=== PATIENT | female | born 1995 | race Caucasian/White ===

== ENCOUNTER 2018-01-10 21:45 | Observation (INO) | payer BC ==
[~2018-01-10] VITALS: Ht 172.7 cm; Wt 58.9 kg
--- NOTE | ~2018-01-10 | HP ---
PATIENT: SHARRON MALDONADO MEDICAL RECORD: [id number] ACCOUNT: [id number] LOCATION:[address] : 95 ADMISSION DATE: 01/10/18 HISTORY AND PHYSICAL EXAMINATION REASON FOR ADMISSION: Abdominal pain, vomiting. HISTORY OF PRESENT ILLNESS: The patient is a 22-year-old 0 female who underwent right oophorectomy and salpingectomy on 01/04/2018 at [facility] by Dr. 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 She was hospitalized for 3 days and went home with minimal nausea. She developed increasing nausea and vomiting with ensuing days and was seen in our office yesterday. She was mildly orthostatic. Potassium was 2.9. Abdominal series shows some increased small bowel gas but no hans ileus. She went home to try liquid Zofran and potassium replacement. Her father reported that increasing nausea throughout the day and vomiting, could not hold anything down. She was directly admitted for this reason. She denies fever. Has had flatus. PAST MEDICAL HISTORY: Otherwise negative. PAST SURGICAL HISTORY: [place] tooth extraction, had hymenectomy, and recent right salpingo-oophorectomy. ALLERGIES: MORPHINE. HOME MEDICATIONS: Potassium 20 mEq p.o. t.i.d., Cipro 500 mg p.o. b.i.d., hydrocodone 5/325 one q. 6 hours p.r.n. pain, Zofran 4 mg p.o. q. 4 hours p.r.n. nausea or vomiting. FAMILY HISTORY: Father - history of osteoarthritis of knees. Mother - history of depression. Paternal grandmother with CAD and hyperlipidemia. Maternal grandfather from sudden . Paternal grandmother with dementia and osteoarthritis. Maternal grandfather with aortic aneurysm. ALLERGIES: MORPHINE CAUSES NAUSEA. REVIEW OF SYSTEMS: GENERAL: She has felt very fatigued since her surgery a week ago. She has had no fever. HEENT: No recent visual change, sinus congestion, or sore throat. RESPIRATORY: No SOB or cough. CARDIAC: No chest pain, claudication, palpitations, although dizzy when sitting up. GASTROINTESTINAL: Nausea with intermittent vomiting, minimal flatus, no stool since surgery. Has had vague abdominal fullness, pain 3/10 on meds. No history of peptic ulcer disease. GENITOURINARY: No incontinence or dysuria. GYNECOLOGIC: No current vaginal bleeding. ENDOCRINE: Denies polyuria, polydipsia, heat or cold intolerance. NEUROLOGIC: No history of stroke, TIA, or vascular headaches. INTEGUMENT: No rash or itching. PSYCHIATRIC: Denies depressed mood. PHYSICAL EXAMINATION: VITAL SIGNS: Temperature is 99.0, pulse 80, respirations 16, blood pressure is HISTORY AND PHYSICAL [id number] SHARRON MALDONADO 111/74 with a sat 97% on room air. GENERAL: The patient is alert and oriented. Mildly ill. Her eyes are clear and nonicteric. Oropharynx with dry mucous membranes. NECK: Supple. CHEST: Clear. HEART: Tachycardic without murmur upon sitting. ABDOMEN: Shows healing midline surgical scar. She has rare bowel sounds throughout all quadrants. She is mildly tender over incision site. PELVIS: Deferred. EXTREMITIES: No CC&E. NEUROLOGIC: Oriented to person, place, and time. Cranial nerves grossly intact. LABORATORY DATA: Lab in the office showed potassium 2.9, BUN of 30. Acute abdominal series showed increased small bowel gas without hans ileus. White count of 6800 with H&H of 10.9 and 31.6. Potassium 3.6, sodium 143, BUN and creatinine are 6 and 0.7. ALT and AST are elevated at 84 and 109. ASSESSMENT: 1. Intractable nausea and vomiting, postoperative right salpingo-oophorectomy for benign ovarian cystadenoma. 2. Clinical dehydration. 3. Orthostatic hypotension. 4. Hypokalemia, improved. 5. Elevated liver functions, etiology unknown. PLAN: Hold n.p.o. We will hydrate, replace potassium as indicated. Acute abdominal series at recurrent vomiting, place NG tube if indicated. TRANSINT:[id number] Voice Confirmation ID: [id number] DOCUMENT ID: [id number] CAROLYN BROWN MD at 2214 CC: [id number] DICTATION DATE: 01/11/18617 REGIONAL MANAGER: 01/11/18 1110 DIS IN 01/12/18 [facility] [address] [place] [address]
[2018-01-10 22:24] LABS: BASOPHILS 0.3 % (0-2); EOSINOPHILS 4.6 % (0-7); HEMATOCRIT 31.6 % (36.0-48.0); HEMOGLOBIN 10.9 g/dL (12-16); LYMPHOCYTES 25.3 % (15-50); MCH 29.6 pg (26.0-34.0); MCHC 34.5 g/dL (31.0-37.0); MCV 85.9 fL (80.0-100.0); MEAN PLATELET VOLUME 9.6 fL (7.4-10.4); NEUTROPHILS 60.8 % (40-80); PLATELET COUNT 239 10x3/uL (130-400); RBC 3.68 10x6/uL (4.00-5.40); RDW 12.7 % (11.5-14.5); WBC 6.8 10x3/uL (4.8-10.8)
[2018-01-10] MEDS ORDERED: HYDROCODON-ACE1 EAC7 PO (22:31)
[2018-01-10] MEDS ORDERED: KLOR-CON M2020 MEQ PO (22:31)
[2018-01-10] MEDS ORDERED: CIPRO500 MG PO (22:31)
[2018-01-10 22:37] LABS: ALBUMIN 3.3 g/dL (3.4-5.0); ALKALINE PHOSPHATASE 43 U/L (46-116); ALT (SGPT) 84 U/L (10-68); BILIRUBIN - TOTAL 0.33 mg/dL (0.2-1.3); CALC OSMOLALITY 282 mosm/kg (275-300); CALCIUM 8.7 mg/dL (8.5-10.1); CARBON DIOXIDE 30.5 mmol/L (21.0-32.0); CHLORIDE - SERUM 105 mmol/L (98-107); CREATININE - SERUM 0.7 mg/dL (0.6-1.3); GLUCOSE 101 mg/dL (74-106); POTASSIUM - SERUM 3.6 mmol/L (3.5-5.1); PROTEIN - SERUM 6.6 g/dL (6.4-8.2); SODIUM 143 mmol/L (136-145); UREA NITROGEN 6 mg/dL (7-18); eGFR NON AFRICAN AMERICAN > 90 mL/min (90-120)
[2018-01-11 02:55] VITALS: BP 111/74; BMI 18.0
[2018-01-11 04:00] VITALS: BP 90/59
[2018-01-11 05:36] LABS: BASOPHILS 0.3 % (0-2); EOSINOPHILS 4.9 % (0-7); HEMATOCRIT 27.6 % (36.0-48.0); HEMOGLOBIN 9.5 g/dL (12-16); IMMATURE GRANULOCYTES 0.2 % (0-5); MCH 29.5 pg (26.0-34.0); MCHC 34.4 g/dL (31.0-37.0); MCV 85.7 fL (80.0-100.0); MEAN PLATELET VOLUME 10.3 fL (7.4-10.4); MONOCYTES 10.2 % (2-11); NEUTROPHILS 51.4 % (40-80); PLATELET COUNT 205 10x3/uL (130-400); RBC 3.22 10x6/uL (4.00-5.40); RDW 12.8 % (11.5-14.5); WBC 6.3 10x3/uL (4.8-10.8)
[2018-01-11 05:50] LABS: ALBUMIN 2.8 g/dL (3.4-5.0); ALKALINE PHOSPHATASE 31 U/L (46-116); ALT (SGPT) 86 U/L (10-68); CALC OSMOLALITY 278 mosm/kg (275-300); CARBON DIOXIDE 29.9 mmol/L (21.0-32.0); CHLORIDE - SERUM 108 mmol/L (98-107); CREATININE - SERUM 0.7 mg/dL (0.6-1.3); GLUCOSE 101 mg/dL (74-106); POTASSIUM - SERUM 3.1 mmol/L (3.5-5.1); PROTEIN - SERUM 5.6 g/dL (6.4-8.2); SODIUM 141 mmol/L (136-145); UREA NITROGEN 6 mg/dL (7-18); eGFR NON AFRICAN AMERICAN > 90 mL/min (90-120)
[2018-01-11 06:17] LABS: HCG SERUM NEGATIVE (NEGATIVE)
[2018-01-11 09:30] VITALS: BP 115/78
[2018-01-11 12:41] VITALS: Ht 172.7 cm; Wt 58.9 kg
[2018-01-11 12:47] VITALS: BP 109/65
[2018-01-11 13:03] LABS: APPEARANCE CLEAR (CLEAR); BILIRUBIN NEGATIVE (NEGATIVE); COLOR STRAW (YELLOW); GLUCOSE NEGATIVE (NEGATIVE); KETONE SMALL mg/dL (NEGATIVE); NITRITE NEGATIVE (NEGATIVE); PROTEIN NEGATIVE (NEGATIVE); UROBILINOGEN NORMAL (NORMAL)
[2018-01-11 16:54] VITALS: BP 111/81
[2018-01-11 20:30] VITALS: BP 112/73
[2018-01-12] VITALS: BP 113/63
[2018-01-12 04:00] VITALS: BP 112/64
[2018-01-12 05:27] LABS: BASOPHILS 0.5 % (0-2); EOSINOPHILS 6.7 % (0-7); HEMOGLOBIN 9.6 g/dL (12-16); IMMATURE GRANULOCYTES 0.2 % (0-5); LYMPHOCYTES 31.9 % (15-50); MCH 29.5 pg (26.0-34.0); MCHC 34.3 g/dL (31.0-37.0); MCV 86.2 fL (80.0-100.0); MONOCYTES 8.2 % (2-11); NEUTROPHILS 52.5 % (40-80); PLATELET COUNT 213 10x3/uL (130-400); RBC 3.25 10x6/uL (4.00-5.40); RDW 12.9 % (11.5-14.5); WBC 6.1 10x3/uL (4.8-10.8)
[2018-01-12 05:59] LABS: ALKALINE PHOSPHATASE 33 U/L (46-116); BILIRUBIN - TOTAL 0.28 mg/dL (0.2-1.3); CALCIUM 8.3 mg/dL (8.5-10.1); CARBON DIOXIDE 28.8 mmol/L (21.0-32.0); CHLORIDE - SERUM 105 mmol/L (98-107); CREATININE - SERUM 0.7 mg/dL (0.6-1.3); GLUCOSE 110 mg/dL (74-106); POTASSIUM - SERUM 3.6 mmol/L (3.5-5.1); PROTEIN - SERUM 5.9 g/dL (6.4-8.2); SODIUM 136 mmol/L (136-145); THYROID STIMULATING HORMONE 0.99 uIU/mL (0.36-3.74); eGFR NON AFRICAN AMERICAN > 90 mL/min (90-120)
[2018-01-12 06:01] LABS: ALT (SGPT) 110 U/L (10-68); CALC OSMOLALITY 269 mosm/kg (275-300); UREA NITROGEN 4 mg/dL (7-18)
[2018-01-12 08:24] VITALS: BP 111/75
[2018-01-12 12:50] VITALS: BP 119/71
[2018-01-12 16:30] VITALS: BP 107/65
== END 2018-01-12 19:12 | disposition home or self-care (01) ==
LOC: D.MS 21:45 → D.M2 22:09 → OBSVTIME 22:10 → D.M2 22:11
PROVIDERS: Family Medicine
DX: K56.7 Ileus, unspecified (principal); E87.6 Hypokalemia; E86.0 Dehydration; I95.1 Orthostatic hypotension; R74.8 Abnormal levels of other serum enzymes